=== PATIENT | female | born 1990 | race Caucasian/White ===

== ENCOUNTER 2021-03-10 06:40 | Emergency (ER) | payer OTHER | END 2021-03-10 09:16 | disposition home or self-care (01) | LOC: FER 06:40 | DX: S61.411A Laceration without foreign body of right hand, initial encounter (principal); M25.531 Pain in right wrist; F17.200 Nicotine dependence, unspecified, uncomplicated; Z23 Encounter for immunization; W45.8XXA Other foreign body or object entering through skin, initial encounter; Y92.89 Other specified places as the place of occurrence of the external cause; Y99.0 Civilian activity done for income or pay | CPT/HCPCS: 90471; 90715; 99282 ==